=== PATIENT | female | born 1985 | race African-American/Black ===

== ENCOUNTER 2017-04-21 11:49 | Emergency (ER) | payer BC ==
[~2017-04-21] VITALS: Ht 165.1 cm; Wt 136.1 kg
[~2017-04-21 11:49] MED LIST: AZITHROMYCIN 2250 MG PO; COZAAR 25 MG TA25 M1 PO; FLAGYL500 MG PO; IBUPROFEN 600600 M1 PO; NORCO 5-325 TA1 EACH PO; NORVASC 5 MG TAB5 MG PO; PREDNISONE 20 M20 MG PO; PROVENTIL HFA6.7 G1 INH; PULMICORT0.25 MG/3 INH; TESSALON PERLE100 MG PO; VALIUM5 MG PO; ZESTRIL10 MG PO; ZIAC 10/6.25 MG10 MG PO
[2017-04-21] MEDS ORDERED: PREDNISONE 20 M20 MG PO (12:22)
[2017-04-21] MEDS ORDERED: VENTOLIN HFA 1818 GM INH (12:22)
[2017-04-21 13:38] VITALS: BP 140/91
== END 2017-04-21 13:41 | disposition home or self-care (01) ==
LOC: ER 11:49
DX: J45.901 Unspecified asthma with (acute) exacerbation (principal); I10 Essential (primary) hypertension; F17.210 Nicotine dependence, cigarettes, uncomplicated; F10.99 Alcohol use, unspecified with unspecified alcohol-induced disorder

== ENCOUNTER 2017-12-06 08:08 | Emergency (ER) | payer BC ==
[~2017-12-06] VITALS: Ht 167.6 cm; Wt 181.0 kg
[~2017-12-06 08:08] MED LIST changes: +VENTOLIN HFA 1818 GM INH
[2017-12-06] MEDS ORDERED: ALBUTEROL2.5 MG/31 INH (09:43)
[2017-12-06] MEDS ORDERED: PROAIR HFA8.5 GM INH (09:43)
[2017-12-06] MEDS ORDERED: PREDNISONE 20 M20 MG PO (09:43)
[2017-12-06 10:37] VITALS: BP 153/95
[2018-04-13] MEDS ORDERED: LOPRESSOR50 PO (12:11)
[2018-04-25] MEDS ORDERED: AMLODIPINE BESY10 MG PO (14:10)
[2018-04-25] MEDS ORDERED: IBU800 MG PO (14:11)
[2018-04-25] MEDS ORDERED: PROAIR HFA8.5 GM INH (14:13)
[2018-04-25] MEDS ORDERED: TUMS PO (14:30)
== END 2017-12-06 10:39 | disposition home or self-care (01) ==
LOC: ER 08:08
DX: J45.901 Unspecified asthma with (acute) exacerbation (principal); I10 Essential (primary) hypertension; F17.210 Nicotine dependence, cigarettes, uncomplicated

== ENCOUNTER 2018-05-01 05:41 | Day surgery (SDC) | payer BC, OTHER ==
[~2018-05-01] VITALS: Ht 167.6 cm; Wt 178.7 kg
--- NOTE | ~2018-05-01 | O ---
[facility] [place] [address] OPERATIVE REPORT Name: JINNY BRAXTON Room #: [address] [place] [address] M.R.#: [id number] Admission: 05/01/18 Attend Phys: Isaías Linares MD Discharge: Date of : 83 Report #: [id number] THIS REPORT FOR: //name// CC: Collin Linares DATE OF SERVICE: 05/01/2018 PREOPERATIVE DIAGNOSIS: Left knee lateral meniscus tear. POSTOPERATIVE DIAGNOSES: 1. Left knee lateral meniscus tear. 2. Grade 4 chondromalacia lateral tibial plateau. PROCEDURE: Left knee arthroscopy with partial lateral meniscectomy. SURGEON: Isaías Linares MD ROADABILITY MACHINE OPERATOR: Mary Jane Johnson PA-C INDICATIONS FOR ROADABILITY MACHINE OPERATOR: Throughout the case, extensive retraction and manipulation of the knee was required secondary to the patient's large BMI of 71. This was afforded to me by my ophthalmology assistant. ANESTHESIA: LMA. TOURNIQUET TIME: 15 minutes. COMPLICATIONS: None. SPECIMENS: None. CONDITION UPON LEAVING THE OPERATING ROOM: Stable. INDICATIONS FOR PROCEDURE: The patient is a 32-year-old female who has had lateral-sided left knee pain. She had an MRI scan, shown to have a tear of her lateral meniscus as well as degenerative changes of the lateral compartment. After discussion with her, she elected for left knee arthroscopy with partial lateral meniscectomy and debridement as needed. DESCRIPTION OF PROCEDURE: Risks, benefits, alternatives, complications were discussed in detail with the patient including but not limited to risk of anesthesia, risk of damage to nerves, arteries, blood vessels, risk for infection, bleeding, risk for continued knee pain, need for reoperation. Informed consent was obtained from the patient. Left knee was appropriately marked in the preoperative holding area. IV Ancef was given for preoperative [address] [address] OPERATIVE REPORT Name: JINNY BRAXTON Room #: 150-11 [facility] Anders#: [id number] Admission: 05/01/18 Attend Phys: Isaías Linares MD Discharge: Date of : 83 Report #: [id number] antibiotics. She was brought to the operating room and placed in the supine position on the operating room table. General endotracheal anesthesia was induced without complication. Tourniquet was placed on left thigh. Left lower extremity was prepped and draped in normal sterile fashion. Timeout was performed properly identifying the patient and procedure as well as instrumentation. All in the operating room were in agreement. Left lower extremity was exsanguinated, tourniquet was inflated. Tourniquet time was 15 minutes. Standard anterolateral portal was established with an 11 blade through the skin. Arthroscope was introduced into the patellofemoral compartment, diagnostic arthroscopy was undertaken. Patellofemoral compartment was visualized and found to be without pathology. Medial gutter was visualized and found to be without pathology. Medial compartment was visualized and medial portal was established under arthroscopic visualization. Probe was introduced into the medial compartment and there was noted to be an intact medial meniscus. Notch was visualized and found to have an intact anterior cruciate ligament. Lateral compartment was visualized and found to have a horizontal type tear of the posterior horn extending into the body of the lateral meniscus with inner margin fraying. This was trimmed back to stable rim with arthroscopic biter and arthroscopic shaver. In addition, there were areas of grade 4 chondromalacia of the lateral tibial plateau. The lateral gutter was visualized and found to be without pathology. Scope was placed back in the patellofemoral compartment and fluid was drained from the knee. Knee was injected with 10 mL of 0.5% Marcaine. Incision was closed with 3-0 nylon. Soft dressing of Adaptic, 4 x 4, Webril, Ralph wrap were applied. The patient tolerated this procedure well and went to recovery room under care of anesthesia postoperatively. By: [id number] Isaías Linares MD /nt
[~2018-05-01 05:41] MED LIST changes: +ALBUTEROL2.5 MG/31 INH; +AMLODIPINE BESY10 MG PO; +IBU800 MG PO; +LOPRESSOR50 PO; +PROAIR HFA8.5 GM INH; +TUMS PO
[2018-05-01 10:09] VITALS: BP 151/86
[2018-05-01] MEDS ORDERED: HYDROCODONE-AP1 EAC6 PO (11:33)
[2018-05-01] MEDS ORDERED: ASPIR-TRIN325 MG PO (11:34)
[2018-05-01] MEDS ORDERED: PERCOCET PO (12:38)
[2018-05-01 12:50] VITALS: BP 151/86
== END 2018-05-01 13:45 | disposition home or self-care (01) ==
LOC: OR 05:41 → TBA 10:05 → OR 10:33
DX: M23.252 Derangement of posterior horn of lateral meniscus due to old tear or injury, left knee (principal); M94.262 Chondromalacia, left knee; I10 Essential (primary) hypertension; K21.9 Gastro-esophageal reflux disease without esophagitis; F41.9 Anxiety disorder, unspecified; F17.210 Nicotine dependence, cigarettes, uncomplicated; Z98.890 Other specified postprocedural states; Z87.09 Personal history of other diseases of the respiratory system; Z79.899 Other long term (current) drug therapy; Z79.82 Long term (current) use of aspirin
CPT/HCPCS: 50010; 50101; 50405; 51038; 54170; 56526; 62110; 62900; 70005

== ENCOUNTER 2018-09-23 09:08 | Emergency (ER) | payer OTHER ==
[~2018-09-23] VITALS: Ht 167.6 cm; Wt 176.9 kg
[~2018-09-23 09:08] MED LIST changes: +ASPIR-TRIN325 MG PO; +HYDROCODONE-AP1 EAC6 PO; +PERCOCET PO
[2018-09-23 10:14] VITALS: BP 165/101
== END 2018-09-23 09:48 | disposition home or self-care (01) ==
LOC: ER 09:08
DX: I10 Essential (primary) hypertension (principal); F17.210 Nicotine dependence, cigarettes, uncomplicated; K21.9 Gastro-esophageal reflux disease without esophagitis; F41.9 Anxiety disorder, unspecified

== ENCOUNTER 2018-12-05 12:00 | Emergency (ER) | payer OTHER ==
[~2018-12-05] VITALS: Ht 167.6 cm; Wt 127.0 kg
[~2018-12-05 12:00] MED LIST changes: -LOPRESSOR50 PO; +TOPROL XL50 MG PO
[2018-12-05] MEDS ORDERED: LOSARTAN-HCTZ1 EAC1 PO (12:39)
[2018-12-05] MEDS ORDERED: HYDROCHLOROTHIA25 M1 PO (13:21)
[2018-12-05] MEDS ORDERED: COZAAR100 MG PO (13:21)
[2018-12-05] MEDS ORDERED: LORAZEPAM 0.50.5 M1 PO (13:22)
[2018-12-05] MEDS ORDERED: LITTLE REMEDIE118 M1 PO (13:23)
[2018-12-05] MEDS ORDERED: VENTOLIN HFA 1818 GM INH ×2 (13:23→13:26)
[2018-12-05] MEDS ORDERED: TESSALON PERLE100 MG PO (13:26)
[2018-12-05] MEDS ORDERED: PREDNISONE 20 M20 MG PO (13:26)
[2018-12-05 13:34] VITALS: BP 170/88
== END 2018-12-05 13:36 | disposition home or self-care (01) ==
LOC: ER 12:00
DX: J20.9 Acute bronchitis, unspecified (principal); F17.210 Nicotine dependence, cigarettes, uncomplicated; I10 Essential (primary) hypertension; K21.9 Gastro-esophageal reflux disease without esophagitis; F41.9 Anxiety disorder, unspecified

== ENCOUNTER 2019-01-01 17:36 | Emergency (ER) | payer OTHER ==
[~2019-01-01] VITALS: Ht 172.7 cm; Wt 176.9 kg
[~2019-01-01 17:36] MED LIST changes: +COZAAR100 MG PO; +HYDROCHLOROTHIA25 M1 PO; +LITTLE REMEDIE118 M1 PO; +LORAZEPAM 0.50.5 M1 PO; +LOSARTAN-HCTZ1 EAC1 PO
[2019-01-01 18:19] LABS: URINE BILIRUBIN NEGATIVE (Negative); URINE BLOOD NEGATIVE (Negative); URINE CLARITY CLEAR; URINE COLOR YELLOW; URINE GLUCOSE-RANDOM* NEGATIVE (Negative); URINE KETONES NEGATIVE (Negative); URINE LEUKOCYTES NEGATIVE (Negative); URINE NITRITE NEGATIVE (Negative); URINE PROTEIN (DIPSTICK) NEGATIVE (Negative); URINE UROBILINOGEN 0.2 E.U./dl (0.2-1.0)
[2019-01-01 18:34] LABS: BASOPHILS 1.4 % (0.0-2.0); EOSINOPHILS 6.9 % (0.0-3.0); HEMATOCRIT 34.8 % (37.0-47.0); HEMOGLOBIN 11.7 gm/dL (12.0-15.0); LYMPHOCYTES 31.4 % (24.0-44.0); MCH 26.5 pg (26.0-34.0); MCHC 33.5 g/dL (28.0-37.0); MONOCYTES 3.2 % (1.0-8.0); PLATELET COUNT 378 thou/uL (150-400); POLYS 57.1 % (36.0-66.0); RBC 4.41 mil/uL (4.20-5.00); RDW 16.3 % (10.5-14.5); WBC 8.8 thou/uL (4.0-11.0)
[2019-01-01 18:47] LABS: CALCIUM 9.2 mg/dL (8.5-10.1); CREATININE 0.8 mg/dL (0.6-1.0); POTASSIUM 3.1 mmol/L (3.5-5.1)
[2019-01-01 18:53] LABS: ALBUMIN 3.3 g/dL (3.4-5.0); TOTAL BILIRUBIN 0.2 mg/dL (<0.1-1.0); TOTAL PROTEIN 7.9 g/dL (6.4-8.2)
[2019-01-01 19:52] VITALS: BP 154/97
== END 2019-01-01 19:53 | disposition home or self-care (01) ==
LOC: ER 17:36
PROVIDERS: Physician Assistant
DX: G44.209 Tension-type headache, unspecified, not intractable (principal); D64.9 Anemia, unspecified; I10 Essential (primary) hypertension; E87.6 Hypokalemia; F43.9 Reaction to severe stress, unspecified; F17.210 Nicotine dependence, cigarettes, uncomplicated; K21.9 Gastro-esophageal reflux disease without esophagitis; F41.9 Anxiety disorder, unspecified; E66.01 Morbid (severe) obesity due to excess calories; Z68.43 Body mass index [BMI] 50.0-59.9, adult